=== PATIENT | male | born 1955 | race Hispanic/Latino ===

== ENCOUNTER → 2023-10-21 | Outpatient (CLI) | payer MEDICARE | END | disposition home or self-care (01) | LOC: RAH 10:33 | PROVIDERS: ATTEND Family Medicine | DX: M17.0 Bilateral primary osteoarthritis of knee (principal); M25.561 Pain in right knee; M25.562 Pain in left knee; M79.89 Other specified soft tissue disorders | CPT/HCPCS: 73560 ==

== ENCOUNTER → 2024-10-01 | Outpatient (CLI) | payer MEDICARE ==
--- NOTE | 2024-10-01 14:11 | HMCIMG ---
Exam Type: CHEST 2VWS Clinical Information: PRE-OP Comparison: None Findings: The lungs are clear of infiltrates. The heart is normal in size. The bony and soft tissue structures of the chest are unremarkable. Impression: Clear lungs.
== END | disposition home or self-care (01) ==
LOC: RAH 13:03
PROVIDERS: ATTEND Family Medicine
DX: Z01.818 Encounter for other preprocedural examination (principal)
CPT/HCPCS: 71046